=== PATIENT | male | born 1970 | race Caucasian/White ===

== ENCOUNTER 2016-08-16 21:20 | Emergency (ER) | payer BC ==
[~2016-08-16 21:20] MED LIST: AVELOX400 MG PO; BACTRIM DS TAB1 EACH PO; CLARITIN10 MG PO; DESYREL50 MG PO; DIFLUCAN150 MG PO; ERYTHROMYCIN O3.5 GM TOP; FLONASE 0.05% N16 GM; METOPROLOL SUCC25 MG PO; OMNIPRED5 ML OP; PRILOSEC20 MG PO; SYNTHROID175 MCG PO; VALTREX500 MG PO; ZESTRIL5 MG PO; ZOLOFT50 MG PO; ZYRTEC10 MG PO; [UNRECOGNIZED DRUG - OTHER] PO
== END 2016-08-17 00:10 | disposition home or self-care (01) ==
LOC: ER 21:20
DX: K11.21 Acute sialoadenitis (principal); L03.211 Cellulitis of face; Z85.850 Personal history of malignant neoplasm of thyroid; E89.0 Postprocedural hypothyroidism; I10 Essential (primary) hypertension; Z92.3 Personal history of irradiation; Z79.899 Other long term (current) drug therapy; Z79.82 Long term (current) use of aspirin
CPT/HCPCS: 96372; 99282-25